=== PATIENT | male | born 1930 | race Hispanic/Latino ===

== ENCOUNTER 2019-07-28 22:10 | Inpatient (IN) | payer MEDICARE ==
[~2019-07-28] VITALS: Ht 154.9 cm; Wt 84.8 kg
[2019-07-28 22:45] LABS: BASOPHILS % (AUTO) 0.7 % (0.0-5.0); EOSINOPHILS % (AUTO) 2.3 % (0.0-8.0); HEMATOCRIT 39.9 % (42-54); LYMPHOCYTES % (AUTO) 18.3 % (21.0-51.0); MEAN CORPUSCULAR HGB CONC 33.4 g/dL (32.0-36.0); MEAN CORPUSCULAR VOLUME 89.6 fL (79-99); MONOCYTES % (AUTO) 9.2 % (3.0-13.0); NEUTROPHILS % (AUTO) 69.5 % (40.0-77.0); PLATELET COUNT (AUTO) 164 K/uL (130-400); RED BLOOD CELL COUNT(AUTO) 4.45 MIL/uL (4.50-6.20); RED CELL DISTRIBUTION WIDTH 14.5 % (11.0-15.5); WHITE BLOOD COUNT (AUTO) 8.4 K/uL (4.8-10.8)
[2019-07-28 23:01] LABS: CREATININE 1.2 mg/dL (0.5-1.5); POTASSIUM 4.4 mmol/L (3.5-5.1)
[2019-07-28 23:08] LABS: ALBUMIN 3.2 g/dL (3.5-5.0); BILIRUBIN,TOTAL 0.6 mg/dL (0.2-1.0); INR 1.8 (0.85-1.15); PARTIAL THROMBOPLASTIN TIME 32.7 SEC (26.3-35.5); PROTHROMBIN TIME 18.5 SEC (9.6-11.6); TOTAL PROTEIN, SERUM 7.1 g/dL (6.0-8.3)
[2019-07-28 23:46] LABS: APPEARANCE,URINE Clear (CLEAR); BILIRUBIN,URINE Negative (NEGATIVE); COLOR,URINE Yellow (YELLOW); GLUCOSE, URINE (UA) TRACE mg/dL (NEGATIVE); KETONES,URINE Negative (NEGATIVE); LEUKOCYTE ESTERASE ,URINE Negative (NEGATIVE); NITRATE,URINE Negative (NEGATIVE); OCCULT BLOOD,URINE Negative (NEGATIVE); PH,URINE 5.5 (5.0-8.0); PROTEIN,URINE Negative (NEGATIVE)
[2019-07-29] MEDS ORDERED: ASPIRIN 325 MG TABLET ONE
[2019-07-29] MEDS ORDERED: MORPHINE SULFATE 4 MG/1ML SYG IV PRN (03:15)
[2019-07-29] MEDS ORDERED: ACETAMINOPHEN 325 MG TAB PO PRN ×2 (03:15)
[2019-07-29] MEDS ORDERED: ONDANSETRON HCL 4 MG/2 ML VIAL IV PRN (03:15)
[2019-07-29] MEDS ORDERED: HYDRALAZINE HCL 20 MG/ML VIAL IV PRN (03:15)
[2019-07-29] MEDS: CEFTRIAXONE SODIUM 1 GM IV SCH (03:15)
[2019-07-29 05:17] LABS: CHOLESTEROL 95 mg/dL (<200); HDL CHOLESTEROL 32 mg/dL (29-71); LDL DIRECT 53 mg/dL (0-99); TRIGLYCERIDES 53 mg/dL (30-200)
[2019-07-29 05:22] LABS: CREATINE KINASE, TOTAL 38 U/L (21-232); MYOGLOBIN 51 ng/mL (10-92); TROPONIN I < 0.04 ng/mL (0.00-0.06)
[2019-07-29 06:48] VITALS: BP 166/83
--- NOTE | 2019-07-29 06:50 | NUR ---
arrival to unit patient arrived to unit via stretcher and accompanied by er nurse and daughter at bedside. pt is awake and alert x 4 belongings with daughter identity verified pt is in no apparent distress and denies pain
[2019-07-29 07:19] LABS: BASOPHILS % (AUTO) 0.7 % (0.0-5.0); EOSINOPHILS % (AUTO) 3.4 % (0.0-8.0); HEMATOCRIT 38.2 % (42-54); LYMPHOCYTES % (AUTO) 22.8 % (21.0-51.0); MEAN CORPUSCULAR HEMOGLOBIN 29.9 pg (27.0-33.0); MEAN CORPUSCULAR HGB CONC 33.2 g/dL (32.0-36.0); MONOCYTES % (AUTO) 10.4 % (3.0-13.0); NEUTROPHILS % (AUTO) 62.7 % (40.0-77.0); NUCLEATED RED BLOOD CELLS 0.1 % (0.0-0.19); PLATELET COUNT (AUTO) 154 K/uL (130-400); RED BLOOD CELL COUNT(AUTO) 4.24 MIL/uL (4.50-6.20); RED CELL DISTRIBUTION WIDTH 14.7 % (11.0-15.5); WHITE BLOOD COUNT (AUTO) 7.2 K/uL (4.8-10.8)
[2019-07-29 07:22] LABS: CREATININE 0.9 mg/dL (0.5-1.5); POTASSIUM 4.3 mmol/L (3.5-5.1)
[2019-07-29 07:27] LABS: BILIRUBIN,TOTAL 0.7 mg/dL (0.2-1.0); TOTAL PROTEIN, SERUM 6.3 g/dL (6.0-8.3)
[2019-07-29 07:30] VITALS: BP 143/70
[2019-07-29] MEDS ORDERED: HYDROXYZINE HCL 50 MG/ML VIAL IM PRN (07:45)
[2019-07-29 11:00] VITALS: BP 135/66
[2019-07-29 11:05] LABS: CREATINE KINASE, TOTAL 39 U/L (21-232); MYOGLOBIN 66 ng/mL (10-92); TROPONIN I < 0.04 ng/mL (0.00-0.06)
[2019-07-29] MEDS: FUROSEMIDE 10 MG/ML 2ML VIAL IV SCH (11:27)
[2019-07-29] MEDS: FAMOTIDINE/PF 20 MG/2 ML VIAL IV SCH ×2 (11:27→21:55)
[2019-07-29] MEDS: ENOXAPARIN SODIUM 30 MG/0.3 ML SQ SCH (11:28)
[2019-07-29] MEDS: METOPROLOL TARTRATE 25 MG TAB PO SCH ×2 (11:28→21:55)
--- NOTE | 2019-07-29 13:10 | NUR ---
IVF Clarified with Dr. Snowden that patient has Hx CHF and is on IVFs; cofirmed with MD to administer NS as ordered.
[2019-07-29] MEDS: SODIUM CHLORIDE 0.9% 1000ML 1,000 ML IV SCH (13:40)
[2019-07-29] MEDS ORDERED: LEVO50TA11 PO (14:08)
[2019-07-29] MEDS ORDERED: FINA5TAB41 PO (14:10)
[2019-07-29] MEDS ORDERED: METO-391 PO (14:18)
[2019-07-29] MEDS ORDERED: WARF1TAB83 PO ×2 (14:18)
[2019-07-29] MEDS ORDERED: ATOR40TA71 PO (14:18)
[2019-07-29] MEDS ORDERED: ENAL20TA PO (14:27)
[2019-07-29] MEDS ORDERED: TRAM50TA4 PO (14:27)
[2019-07-29] MEDS ORDERED: ISOS20TA7 PO (14:27)
[2019-07-29] MEDS ORDERED: FAMO40TA7 PO (14:28)
[2019-07-29 16:00] VITALS: BP 120/68
--- NOTE | 2019-07-29 18:00 | NUR ---
PSYCHIATRIC CONSULT Dr. Bernal came to evaluate patient. No further orders.
--- NOTE | 2019-07-29 18:11 | NUR ---
cm note met with patient and states resides athome with spouse independent with adlls and self care, uses cane and walker for ambulation. dc [place] no dc needs. Addendum: 07/29/19 at 1812 by REY LAGOS CM Amended: Links added.
[2019-07-29 19:34] LABS: CREATINE KINASE, TOTAL 44 U/L (21-232); MYOGLOBIN 64 ng/mL (10-92); TROPONIN I < 0.04 ng/mL (0.00-0.06)
--- NOTE | 2019-07-29 20:32 | NUR ---
LEFT GROIN PICTURES Took pictures of lesion in left groin and in chart. Wound Healing consult.
--- NOTE | 2019-07-29 21:06 | NUR ---
CORRECTION ON LEFT GROIN PICTURES Were unable to print pictures, so there are no wound pictures in chart. Attempted to take pictures again. Family requested to take picture of wound again tomorrow during day time. Will continue attempting to print pictures directly from camera.
[2019-07-29 21:44] VITALS: BP 145/66
[2019-07-30] MEDS: CEFTRIAXONE SODIUM 1 GM IV SCH (03:24)
[2019-07-30] MEDS: SODIUM CHLORIDE 0.9% 1000ML 1,000 ML IV SCH (03:24)
--- NOTE | 2019-07-30 04:18 | NUR ---
ASSESSMENT PT RESTING QUIETLY IN BED. DAUGHTER AT BEDSIDE. IV FLUIDS INFUSING WITHOUT DIFFICULTY. PT PLEASANT, COOPERATIVE. CALLBELL REVIEWED AND WITHIN REACH. TELE PACK SECURED. ASSESSMENT COMPLETED, SEE FLOW SHEET. QUESTIONS ASKED AND ANSWERED. EMOTIONAL SUPPORT GIVEN
[2019-07-30 04:43] VITALS: BP 173/76
[2019-07-30 05:51] LABS: BASOPHILS % (AUTO) 0.8 % (0.0-5.0); EOSINOPHILS % (AUTO) 2.2 % (0.0-8.0); HEMATOCRIT 41.2 % (42-54); LYMPHOCYTES % (AUTO) 16.4 % (21.0-51.0); MEAN CORPUSCULAR HGB CONC 33.7 g/dL (32.0-36.0); MEAN CORPUSCULAR VOLUME 89.2 fL (79-99); MONOCYTES % (AUTO) 9.1 % (3.0-13.0); NEUTROPHILS % (AUTO) 71.5 % (40.0-77.0); PLATELET COUNT (AUTO) 168 K/uL (130-400); RED BLOOD CELL COUNT(AUTO) 4.62 MIL/uL (4.50-6.20); RED CELL DISTRIBUTION WIDTH 14.7 % (11.0-15.5); WHITE BLOOD COUNT (AUTO) 9.7 K/uL (4.8-10.8)
[2019-07-30 06:22] LABS: ALBUMIN 3.1 g/dL (3.5-5.0); BILIRUBIN,TOTAL 0.8 mg/dL (0.2-1.0); POTASSIUM 4.1 mmol/L (3.5-5.1); TOTAL PROTEIN, SERUM 6.8 g/dL (6.0-8.3)
[2019-07-30 08:00] VITALS: BP 149/68
[2019-07-30] MEDS: METOPROLOL TARTRATE 25 MG TAB PO SCH (10:12)
[2019-07-30] MEDS: FAMOTIDINE/PF 20 MG/2 ML VIAL IV SCH (10:12)
[2019-07-30] MEDS: FUROSEMIDE 10 MG/ML 2ML VIAL IV SCH (10:13)
[2019-07-30] MEDS: ENOXAPARIN SODIUM 30 MG/0.3 ML SQ SCH (10:14)
--- NOTE | 2019-07-30 11:55 | NUR ---
[facility] consult Patient assessed as ordered. Patient with lesion to left groin. Patient states he has had lesion for approx forty years. No open ulcer/wound is present. [facility] recommendations submitted and report given to patient's nurse.
[2019-07-30 12:00] VITALS: BP 131/64
[2019-07-30 16:00] VITALS: BP 150/67
== END 2019-07-30 19:20 | disposition home or self-care (01) | DRG 205 ==
LOC: EDH 22:10 → EDHIP 07-29 03:05 → OBSVTOIN 07-29 03:05 → 3BH 07-29 06:25
PROVIDERS: ADMIT Family Medicine; ATTEND Family Medicine
DX: M94.0 Chondrocostal junction syndrome [Tietze] (principal); G93.41 Metabolic encephalopathy; E44.1 Mild protein-calorie malnutrition; I50.22 Chronic systolic (congestive) heart failure; F41.1 Generalized anxiety disorder; E66.9 Obesity, unspecified; E86.0 Dehydration; F03.90 Unspecified dementia, unspecified severity, without behavioral disturbance, psychotic disturbance, mood disturbance, and anxiety; Z87.442 Personal history of urinary calculi; Z95.5 Presence of coronary angioplasty implant and graft; Z68.35 Body mass index [BMI] 35.0-35.9, adult; I25.2 Old myocardial infarction
CPT/HCPCS: 36415; 70450; 71045; 80053; 80061; 81003; 82150; 82550; 83605; 83690; 83874; 83880; 84484; 85025; 85610; 85730; 93005; G0378; J0696; J1650; J1940; J3490